=== PATIENT | female | born 1970 ===

== ENCOUNTER 2017-01-20 15:59 | Emergency (ER) | payer OTHER ==
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
[2017-01-20] MEDS ORDERED: MOTRIN PO ONE (21:59)
[2017-01-20 22:40] VITALS: BP 145/91
== END 2017-01-20 22:42 | disposition home or self-care (01) ==
LOC: ED 15:59
DX: S16.1XXA Strain of muscle, fascia and tendon at neck level, initial encounter (principal); M25.511 Pain in right shoulder; F41.9 Anxiety disorder, unspecified; Z87.891 Personal history of nicotine dependence; Z88.8 Allergy status to other drugs, medicaments and biological substances; V89.2XXA Person injured in unspecified motor-vehicle accident, traffic, initial encounter; Y93.89 Activity, other specified; Y99.8 Other external cause status; Y92.89 Other specified places as the place of occurrence of the external cause
CPT/HCPCS: 99282